=== PATIENT | male | born 1940 | race Caucasian/White ===

== ENCOUNTER 2016-11-10 09:18 | Outpatient (CLI) | payer MEDICARE, OTHER | END 2016-11-10 09:19 | disposition home or self-care (01) | DX: R35.1 Nocturia (principal) ==

== ENCOUNTER 2018-07-22 11:07 | Outpatient (CLI) | payer MEDICARE, OTHER ==
--- NOTE | 2018-07-22 15:43 | XRAY Report ---
Reason: PAIN IN RIGHT FINGER Procedure Date: 07/22/2018 Accession Number: [id number] / [id number] Procedure: XR - Finger(s) RT CPT Code: FULL RESULT: EXAM: RIGHT FIRST DIGIT RADIOGRAPHY EXAM DATE: 07/22/2018 11:43 AM. CLINICAL HISTORY: Pain in right finger. COMPARISON: None. TECHNIQUE: 3 views. FINDINGS: Bones: Normal. No fracture or bone lesion. Joints: There are degenerative changes about the interphalangeal joints as well as the first metacarpophalangeal joint. Mild subluxation of the proximal interphalangeal joint, appearance is degenerative in nature. Soft Tissues: Normal. No soft tissue swelling. IMPRESSION: No fracture or dislocation is identified. RADIA
== END 2018-07-22 11:08 | disposition home or self-care (01) ==
LOC: DI 11:07
PROVIDERS: ATTEND Internal Medicine
DX: M79.644 Pain in right finger(s) (principal)
CPT/HCPCS: 73140

== ENCOUNTER 2019-05-09 16:31 | Outpatient (CLI) | payer MEDICARE, OTHER ==
--- NOTE | 2019-05-10 10:53 | XRAY Report ---
Reason: NECK PAIN Procedure Date: 05/09/2019 Accession Number: [id number] / [id number] Procedure: XR - Cervical Spine 2 View CPT Code: FULL RESULT: EXAM: CERVICAL SPINE RADIOGRAPHY EXAM DATE: 05/09/2019 05:41 PM. CLINICAL HISTORY: Neck pain. COMPARISONS: None. TECHNIQUE: 4 views. FINDINGS: The bones are diffusely osteopenic. There is a grade 1 anterolisthesis of C4 on C5. There is a mild decrease in the intervertebral disk space at the C2-C3, moderate at C5-C6 and C6-C7. There is a mild degree of endplate spondylosis at C4-C5 through C6-C7. The prevertebral soft tissues are normal. The visualized portions of the airway are normal in appearance. There are dense areas of calcific plaquing of the bilateral carotid bulbs. The lateral masses of C1 are symmetric. The visualized portions of the odontoid are normal in appearance. IMPRESSION: 1. There is a grade 1 anterolisthesis of C4 on C5. There are mild degenerative changes of the disk at C2-C3, moderate at C5-C6 and C6-C7. 2. There is no evidence of acute cervical spine fracture. If additional imaging is desired it could be obtained with MRI of the cervical spine as deemed clinically appropriate.
== END 2019-05-09 16:32 | disposition home or self-care (01) ==
LOC: DI 16:31
PROVIDERS: ATTEND Nurse Practitioner Family
DX: M50.31 Other cervical disc degeneration, high cervical region (principal); M43.12 Spondylolisthesis, cervical region; M47.812 Spondylosis without myelopathy or radiculopathy, cervical region
CPT/HCPCS: 72040

== ENCOUNTER 2019-05-18 13:25 | Outpatient (CLI) | payer MEDICARE, OTHER ==
--- NOTE | 2019-05-19 08:09 | Ultrasound Report ---
Reason: CAROTID ATHEROSCLEROSIS, OSTEOPENIA Procedure Date: 05/18/2019 Accession Number: [id number] / [id number] Procedure: US - Carotid Doppler Complete CPT Code: Final Report FULL RESULT: EXAM: BILATERAL CAROTID AND VERTEBRAL ARTERY DUPLEX DOPPLER ULTRASOUND: EXAM DATE: 05/18/2019 02:38 PM CLINICAL HISTORY: CAROTID ATHEROSCLEROSIS, OSTEOPENIA. COMPARISON: 05/18/2019 2:36 PM. TECHNIQUE: Grayscale imaging, color Doppler, and duplex spectral Doppler were used to evaluate the carotid and vertebral arteries bilaterally. Static images were obtained. FINDINGS: Right common carotid artery intimal hyperplasia. Calcified plaque at the bulb extending into the proximal ICAs and ECAs without significant elevation of the peak systolic velocities. Left common carotid artery intimal hyperplasia. There is calcified plaque at the bulb extending into the proximal ICA and ECA without significant elevation of the peak systolic velocities. Normal antegrade flow is present in bilateral vertebral arteries. VELOCITIES (cm/sec): Transcription to insert worksheet here ICA diameter stenosis: Right: <50% by velocity and <70% by NASCET criteria. Left: <50% by velocity and <70% by NASCET criteria. IMPRESSION: 1. There is bilateral common carotid artery, proximal ICA and ECA plaque without significant stenosis. Stenosis appears to be less than 50% 2.Normal antegrade flow is present in bilateral vertebral arteries. General Recommendations: Stenosis =50% ICA - Follow-up ultrasound 6-12 months Stenosis <50% ICA - High Risk Patient with plaque - Follow-up ultrasound 1-2 years Normal Study but High Risk Patient - Follow-up ultrasound 3-5 years Management recommendations and diagnostic criteria are based on current IAC endorsed standards in Carotid Artery Stenosis: Grayscale and Doppler Ultrasound Diagnosis. Validated velocity measurements with angiographic measurements and velocity criteria are extrapolated from diameter data as defined by the Society of Radiologists in Ultrasound Consensus Conference Radiology 2003; 229;340-346. RADIA
--- NOTE | 2019-05-19 11:09 | DEXA Report ---
Reason: OSTEOPENIA Procedure Date: 05/18/2019 Accession Number: [id number] / [id number] Procedure: DEX - Dexa Spine and/or Hip CPT Code: Final Report FULL RESULT: EXAM: Dexa Spine and/or Hip DATE: 05/18/2019 2:51 PM CLINICAL HISTORY: OSTEOPENIA TECHNIQUE: Dual energy x-ray absorptiometry (DXA) was performed on a [employer] System. Regions measured are the AP Spine, femoral neck, and if needed forearm. COMPARISON: None. In accordance with the International Society for Clinical Densitometry (ISCD) guidelines, data from previous exams may be reanalyzed using current recommendations and techniques. This is done to allow a more accurate basis for comparison with the current study. FINDINGS: The data for the lumbar spine is as follows: BMD (g/cm/cm) T-SCORE Z-SCORE REGION L1 1.141 -0.2 0.0 L2 1.163 -0.6 -0.5 L3 1.371 1.1 1.3 L4 1.383 1.2 1.4 TOTAL 1.277 0.5 0.7 NOTE: All evaluable vertebrae are used for classification The data for the hip is as follows: BMD (g/cm/cm) T-SCORE Z-SCORE REGION Neck 0.932 -1.1 0.1 TOTAL 0.943 -1.1 -0.4 NOTE: The femoral neck or total proximal femur, whichever is lowest, is used for classification. IMPRESSION: THE WHO CLASSIFICATION BASED ON THE INTERNATIONAL REFERENCE STANDARD IS OSTEOPENIA. THE FRACTURE RISK IS INCREASED. RECOMMENDATION: Patients with diagnosis of osteoporosis or osteopenia should have regular bone mineral density assessment. For those eligible for Medicare, routine testing is allowed once every 2 years. Testing frequency can be increased for patients who have rapidly progressing disease or for those who are receiving medical therapy to restore bone mass. COMMENT: World Health Organization (WHO) definitions for osteoporosis and osteopenia: NORMAL BMD: T-score at -1.0 or higher, fracture risk is low OSTEOPENIA BMD: T-score between -1.0 and -2.5, fracture risk is increased. OSTEOPOROSIS BMD: T-score at -2.5 or lower, fracture risk is high. National Osteoporosis Foundation recommends: 1. Obtain adequate dietary calcium (at least 1200 mg per day) and vitamin D (400-800 international units per day). 2. Participate, as appropriate, in regular weightbearing and muscle-strengthening exercise. 3. Avoid tobacco use and reduce alcohol and caffeine intake. 4. For more detailed information see the website at www.NOF.org.
== END 2019-05-18 13:26 | disposition home or self-care (01) ==
LOC: DI 13:25
PROVIDERS: ATTEND Nurse Practitioner Family
DX: M85.89 Other specified disorders of bone density and structure, multiple sites (principal); I65.29 Occlusion and stenosis of unspecified carotid artery
CPT/HCPCS: 77080; 93880

== ENCOUNTER 2019-05-25 11:39 | Observation (INO) | payer MEDICARE, OTHER ==
--- NOTE | 2019-05-25 12:35 | ED Physician Documentation ---
PD HPI FOCAL NEURO - Stated complaint Stated Complaint: SLURRED SPEECH - Chief complaint Chief Complaint: Neuro - History obtained from History obtained from: Patient, Family - History of Present Illness Timing - onset: Yesterday Timing - duration: Hours (18) Severity of deficit: Moderate Weakness: Other (none) Numbness: Other (none) Associated symptoms: Other (states he felt clumsy while playing golf and that his vision wasn't right yesterday, then today had a hard time keeping his bicycle straight while riding uphill and when he got to his coffee shop his friends told him his speech was slurred. He feels this is improving.). No: Headache, Nausea / vomiting, Seizure, Syncope, Fall, Head injury, Chest pain, Neck pain, Back pain, Fever Contributing factors: negative: Anticoagulated, Vascular dz, Atrial fibrillation, Prosthetic heart valve Baseline status: positive: A&OX3, ambulatory, indep Similar symptoms before: Has not had sx before Recently seen: Not recently seen - Treatment prior to arrival Treatment prior to arrival: none, pt was seen at urgent care and sent to the ED Review of Systems Ten Systems: 10 systems reviewed and negative Constitutional: reports: Reviewed and negative Eyes: reports: Decreased vision (now improved). denies: Loss of vision, Photophobia Ears: reports: Reviewed and negative. denies: Loss of hearing Cardiac: reports: Reviewed and negative Respiratory: reports: Reviewed and negative GI: reports: Reviewed and negative Skin: reports: Reviewed and negative Musculoskeletal: reports: Reviewed and negative Neurologic: reports: Difficulty speaking (now improving). denies: Generalized weakness, Focal weakness, Numbness, Near syncope, Syncope, Seizure, Confused, Altered mental status, Headache, Head injury, LOC Immunocompromised: reports: Reviewed and negative PD PAST MEDICAL HISTORY - Past Medical History Past Medical History: Yes Cardiovascular: Hypertension, High cholesterol GI: GERD, Colon polyps : Benign prostate hypertrophy Musculoskeletal: Osteoarthritis - Past Surgical History General: Colonoscopy Ortho: Knee replacement HEENT: Tonsil/Adenoidectomy - Present Medications Home Medications: Ambulatory Orders Medication Instructions Recorded Confirmed Metoprolol Tartrate 25 mg PO DAILY 07/09/14 10/29/15 Doxazosin [Cardura] 10/29/15 - Allergies Allergies/Adverse Reactions: Allergies Allergy/AdvReac Type Severity Reaction Status Date / Time No Known Drug Allergies Allergy Verified 10/29/15 15:09 - Social History Does the pt smoke?: No Smoking Status: Never smoker Does the pt drink ETOH?: Yes Does the pt have substance abuse?: No - Immunizations Immunizations are current?: No Immunizations: TDAP >10years/unknown PD ED PE NORMAL - Vitals Vital signs reviewed: Yes - General General: Alert and oriented X 3, No acute distress, Well developed/nourished - HEENT HEENT: Atraumatic, Pharynx benign - Neck Neck: Supple, no meningeal sign, No JVD - Cardiac Cardiac: RRR - Respiratory Respiratory: No respiratory distress - Abdomen Abdomen: Soft, Non tender, Non distended - Male Male : Deferred - Rectal Rectal: Deferred - Derm Derm: Normal color, Warm and dry, No rash - Extremities Extremities: No deformity, No edema - Neuro Neuro: Alert and oriented X 3, product safety consultant 2-12 intact, No motor deficit, No sensory deficit, Normal speech Eye Opening: Spontaneous Motor: Obeys Commands Verbal: Oriented GCS Score: 15 - Psych Psych: Normal mood, Normal affect PD ED PE EXPANDED - Neuro Neuro: Cerebellar nl, Normal gait, Normal finger nose, Normal speech, Other (difficulty with in tandem gait ). No: Aphasia, Dysarthria NIHSS - Level of Consciousness Level of consciousness: (0) Alert, Keenly responsive LOC Questions: (0) Answers both Q's correct LOC Commands: (0) Performs both correctly - Gaze Best Gaze: (0) Normal - Visual Visual: (0) No loss - Facial Palsy Facial Palsy: (0) Normal, symmetrical movement - Motor Arms (both separate) Motor Arm (right): (0) No drift Motor Arm (left): (0) No drift - Motor Legs (both separate) Motor Leg (right): (0) No drift Motor Leg (left): (0) No drift - Limb Ataxia Limb Ataxia: (0) Absent - Sensory Sensory: (0) Normal - Best Language Best Language: (0) No aphasia - Dysarthria Dysarthria: (0) Normal - Extinction and Inattention (formally neg Extinction and inattention: (0) No abnormality - Total Score/Results Total Score/Result: 0 Results - Vitals Vitals: Vital Signs - 24 hr 05/25/19 11:42 Temperature 36.5 C Heart Rate 66 Respiratory 18 Rate Blood Pressure 162/97 H O2 Saturation 99 Oxygen O2 Source Room air - EKG (time done) 12:25 Rate: Rate (enter#) (60) Rhythm: NSR [place]: Normal Intervals: RBBB QRS: LVH Ischemia: Normal ST segments Computer interpretation: Agree with computer - Labs Labs: Laboratory Tests 05/25/19 05/25/19 05/25/19 13:25 13:25 13:25 WBC 6.4 RBC 3.83 L Hgb 12.9 L Hct 37.6 L MCV 98.2 H MCH 33.7 H MCHC 34.3 RDW 12.3 Plt Count 133 MPV 8.8 Neut # (Auto) 4.8 Lymph # (Auto) 1.0 L Stone # (Auto) 0.4 Eos # (Auto) 0.1 Baso # (Auto) 0.0 Absolute Nucleated RBC 0.00 Nucleated RBC % 0.0 PT 12.8 H INR 1.1 APTT 33.6 H Sodium 139 Potassium 4.3 Chloride 102 Carbon Dioxide 29 Anion Gap 8.0 BUN 25 H Creatinine 1.0 Estimated GFR (MDRD) 73 L Glucose 102 H Calcium 9.3 - Rads (name of study) CT Head Radiology: Final report received, See rad report (no acute findings ) PD MEDICAL DECISION MAKING - ED course Complexity details: reviewed results, re-evaluated patient, considered differential, d/w patient, d/w family ED course: ddx- TIA, peripheral neuropathy, electrolyte imbalance, CVA 78 y/o M with hx and exam as documented, symptoms concerning for TIA, no objective stroke findings and outside window for TPA given this started the previous day. CT head neg, ekg and labs normal. I do feel this may have been a TIA however and warrants admission for MRI and monitoring for recurrent symptoms. Discussed with hospitalist who agrees with plan to admit and pt agrees to admission. Departure - Departure Disposition: ED Place in Observation Clinical Impression: TIA (transient ischemic attack) Discharge Date/Time: 05/25/19 16:08
--- NOTE | 2019-05-25 13:32 | CT Report ---
Reason: gait disturbance, slurred speech Procedure Date: 05/25/2019 Accession Number: [id number] / [id number] Procedure: CT - HEAD WO CPT Code: Final Report FULL RESULT: EXAM: CT HEAD EXAM DATE: 05/25/2019 12:45 PM. CLINICAL HISTORY: Gait disturbance, slurred speech. COMPARISON: None. TECHNIQUE: Multiaxial CT images were obtained from the foramen magnum to the vertex. Reformats: Sagittal and coronal. IV contrast: None. In accordance with CT protocol optimization, one or more of the following dose reduction techniques were utilized for this exam: automated exposure control, adjustment of mA and/or KV based on patient size, or use of iterative reconstructive technique. FINDINGS: Parenchyma: No intraparenchymal hemorrhage. No evidence of mass, midline shift, or CT findings of acute infarction. Uribe-white differentiation is distinct. Diffuse chronic microangiopathic white matter changes. Extraaxial Spaces: Normal for age. No subdural or epidural collections. Ventricles: The ventricles and cortical sulci are enlarged, consistent with age-related tissue loss. Sinuses and orbits: Minimal mucosal thickening in paranasal sinuses. No air-fluid level. Hypoplastic frontal sinuses. Bones: Unremarkable. Other: None. IMPRESSION: Generalized age-related cortical atrophic changes without evidence of acute intracranial abnormality. RADIA
[2019-05-25 13:42] LABS: BASOPHILS % (AUTO) 0.6 %; EOSINOPHILS # (AUTO) 0.1 10^3/uL (0.0-0.7); EOSINOPHILS % (AUTO) 1.7 %; HGB - HEMOGLOBIN 12.9 g/dL (14.0-18.0); LYMPHOCYTES % (AUTO) 16.2 %; MEAN CORPUSCULAR HEMOGLOBIN 33.7 pg (27.0-31.0); MEAN CORPUSCULAR HGB CONC 34.3 g/dL (32.0-36.0); MEAN CORPUSCULAR VOLUME 98.2 fL (80.0-94.0); MEAN PLATELET VOLUME 8.8 fL (7.4-11.4); MONOCYTES # (AUTO) 0.4 10^3/uL (0.0-1.0); MONOCYTES % (AUTO) 6.7 %; NEUTROPHILS # (AUTO) 4.8 10^3/uL (1.5-6.6); NEUTROPHILS % (AUTO) 74.3 %; PLT - PLATELET COUNT 133 10^3/uL (130-450); RED BLOOD COUNT 3.83 10^6/uL (4.70-6.10); RED CELL DISTRIBUTION WIDTH 12.3 % (12.0-15.0); WHITE BLOOD COUNT 6.4 x10^3/uL (4.8-10.8)
[2019-05-25 13:56] LABS: INR 1.1 (0.8-1.2); PT - PROTHROMBIN TIME 12.8 secs (9.9-12.6)
[2019-05-25 14:01] LABS: CALCIUM 9.3 mg/dL (8.5-10.3)
[2019-05-25 14:05] LABS: PARTIAL THROMBOPLASTIN TIME 33.6 secs (24.9-33.3)
[2019-05-25] MEDS ORDERED: SODIUM CHLORIDE FLUSH 0.9% 10 ML SYRINGE IVP PRN (14:59)
[2019-05-25] MEDS ORDERED: SODIUM CHLORIDE 0.9% 1,000 ML IV SCH ×2 (15:00→18:00)
--- NOTE | 2019-05-25 15:09 | HISTORY & PHYSICAL EXAMINATION ---
Chief Complaint - Chief Complaint Chief Complaint: just didnt feel right this morning, there was definately something wrong History of Present Illness - Admitted From Admitted From:: ED - History Obtained From Records Reviewed: ED records History obtained from: Patient (and compared w/ ED report) - History of Present Illness HPI Comment/Other: Patient is a 78 yo male who came to ED today with complaints of speech not feeling right, "I'm not as articulate as usual" He last felt his normal self 2 days ago , but "even felt wobbly" getting up last night to void. No isolatd weakness. Just not the same as usual. He golfed yesterday, 18 holes with cart, felt his golf game was off. Couldnt tell if his balance was off because of his golf game or his golf was off because of his feeling of not entirely fully balanced. Today he finally truly felt something was wrong when he rode his bike to get his coffee (3 miles away) at [employer] and he felt like he was listing on his bike. He felt like he had to swallow more deliberaltly too, but had no dysphagia, no coughing with drinking the whole coffee. No unilateral weakness or paresthesia, no really identifiable discoordination of fine motor task. Denies anyone commenting on a facial droop. Denies, visual deficits, diplopia, dysphagia. History of anemia in past, but his H/H has been stable for years (at current level). Patient drinks ~ 1 drink ETOH daily, never more, no tobacco, non diabetic. As far as he knows his HTn is reasonably controlled but takes metoprolol tartratee just once daily. used to be on amlodipine but stopped and switched to metoprolol because he had noticed that when he bent over to leaf size picker a golf ball he would get light headed. He had a carotid duplex 05/18 for unclear reasons (< 50%, no significant stenosis) (recent severe neck pain with an abrupt head movement; not clear if that was reason for the ultrasound. Pt presented with concern for stroke or TIA. Risk facotrs of hypertension and hyperlipidemia, / self discontinued his simvastatin after reading the insert. never smoker. No prior history of stroke no DM, no known afib On presentation ED exam notable only for tandem gait abnormality Labs notable only for mildly prerenal for age 25/1.0 VS 36.5, HR 66, 162/97 and Sa02 RA 99% EKG NSR, RBBB, no ishcemic changes CT head; no acute findings mRi + lacunar infarct; see detail below History - Past Medical History Cardiovascular: reports: Hypertension, High cholesterol (self discontinued zocor after reading the insert) GI: reports: GERD, Colon polyps : reports: Benign prostate hypertrophy (voids 2-3 x/night) Musculoskeletal: reports: Osteoarthritis MRSA Hx?: No Other Past Medical History: Anemia/thrombocytopenia seen by Dr Thomas last 2014, family hx multiple myleoma; work up negative. macrocytosis at that time, recommened reduce ETOH - Past Surgical History General: reports: Colonoscopy Ortho: reports: Knee replacement HEENT: reports: Tonsil/Adenoidectomy - Family & Social History Family History: Mother: (mother and bro multiple myeloma), Brother: Living arrangement: At home (with ,, is retired manager credit collections) Living Situation: With spouse/s.o. Social History Notes: has been on [employer] for years, retired veterina fritz,. Active, golfs, bikes - Substance History Use: Uses substance without health or social issues: Alcohol (has A drink per day, may be a glass of wine or a beer, had part of a beer yesterday) - POLST POLST Status: Full Code Meds/Allgy - Home Medications Home Medications: Ambulatory Orders Medication Instructions Recorded Confirmed Doxazosin [Cardura] 10/29/15 Aspirin 81 mg PO DAILY #60 tab.chew 05/26/19 Atorvastatin Calcium 80 mg PO DAILY #30 tablet 05/26/19 Zolpidem [Ambien] 5 mg PO QPM PRN tablet 05/26/19 amLODIPine [Norvasc] 5 mg PO DAILY #30 tablet 05/26/19 - Allergies Allergies/Adverse Reactions: Allergies Allergy/AdvReac Type Severity Reaction Status Date / Time No Known Drug Allergies Allergy Verified 10/29/15 15:09 Review of Systems - Constitutional Constitutional: denies: Fatigue, Poor appetite, Weight gain, Weight loss - Eyes Eyes: reports: Corrective lenses. denies: Spots in vision, Field loss, Vision loss, Dipolpia - Cardiovascular Cariovascular: reports: Lightheadedness (as per HPI). denies: Irregular heart rate, Palpitations, Chest pain, Edema, Syncope - Respiratory Respiratory: denies: Cough, Wheezing, Orthopnea, SOB at rest - Gastrointestinal Gastrointestinal: denies: Abdominal pain, Constipation, Diarrhea, Black stools, Bloody stools - Genitourinary Genitourinary: reports: Nocturia (2-3 x at night). denies: Dysuria, Frequency - Musculoskeletal Musculoskeletal: reports: Other (recent severe neck pain, he describes as muskuloskeletal, had outpatient carotid duplex (?)) - Neurological Neurological: denies: General weakness, Other (inarticulate speech (from patients perspective) as pr HPI) - Endocrine Endocrine: denies: Polyuria, Polydypsia, Polyphagia Exam - Vital Signs Reviewed Vital Signs: Yes Vital Signs: Vital Signs x48h Temp Pulse Resp BP Pulse Ox 05/25/19 11:42 36.5 C 66 18 162/97 H 99 - Physical Exam General Appearance: positive: No acute distress, Alert, Other (Pleasant older gentleman with somewhat bulbous nose tip, sitting in chair in ED Room 10, alert, oriented, articulate (from my perspective) but who feels he is not as articulate as usual.) Eyes Bilateral: positive: Normal inspection, PERRL, EOMI (no nystagmus), Other (glasses) Neck: positive: Other (supple). negative: Carotid bruit Respiratory: positive: Chest non-tender, No respiratory distress Cardiovascular: positive: Regular rate & rhythm, No murmur Abdomen: positive: Other (Examined sitting in ED, with patient gown Soft, nondistended, nontender, + BS) Skin: positive: Warm, Dry Neurologic/Psychiatric: positive: Oriented x3, CN's nml (2-12), Motor nml, Sensation nml, Mood/affect nml, Other (no dysarthria) Conclusion/Plan - Problem List (1) Left pontine stroke Conclusion/Plan: MRI identified new small left paramedian lower twan acute infact 4x8mm; wastewater treatment plant operator type infarct (lacunar) ASA Statin (d/w patient we will start atorvastatin) Symptoms already improving but still doesnt feel articulate in speech(subjectively) Permissive HTN today need better BP control than metoprolol (plan d/c metoprolol and start amlodipine on discharge) PT eval tomorrow echo pending already had carotid duplex (2) Imbalance Conclusion/Plan: No longer symptomatic, but related to new lacunar infarct noted above PT eval in am (3) Hypertension Conclusion/Plan: Takes metoprolol tartrate 25 mg once daily at home reports was on other agent in past but was "light headed when bent over to leaf size picker the golf ball" so changed agents BP here 162/97, 154/90 Beta abdoulaye (especially metoprolol tartrat ONCE daily) not best agent for BP control Will discuss with patient other agent. goal w/ lacunar infarct 120/70 for secondary prevention (4) BPH (benign prostatic hyperplasia) Conclusion/Plan: on tamsulosin at home He does take it at night, so not liekly the alphablocker is culprit of his subjetive feeling off, imbalanced today Code status; full - Lab Results Lab results reviewed: Yes Fish Bones: 05/25/19 13:25 05/26/19 09:32 - Diagnostic Imaging Results Diagnostic Imaging Results: positive: Final report reviewed Diagnostic Imaging Results Comments: CT head; 05/25/19 No acute intracranial abnormality MRI brain: Punctate to small acute infarct of left paramedian lower twan 4x8mm .Warp Placer type infarct other findings likely related to small vessel ischemic disease - EKG Results EKG Interpreted Independently: No EKG Findings: NSR, rate ~ 60, , Left axis, Incomplete RBBB, no ischemic changes
--- NOTE | 2019-05-25 17:00 | MRI Report ---
Reason: TIA eval, ? ischemia Procedure Date: 05/25/2019 Accession Number: [id number] / [id number] Procedure: MRI - Brain W/O CPT Code: Final Report FULL RESULT: EXAM: MRI BRAIN WITHOUT CONTRAST. EXAM DATE: 05/25/2019 04:35 PM. CLINICAL HISTORY: 78-year-old presenting with gait disturbance and slurred speech. Evaluate for intracranial pathology. COMPARISON: CT head 05/25/2019. TECHNIQUE: Multiplanar, multisequence T1-weighted and fluid-sensitive MR sequences of the brain were performed. Sequences optimized for routine evaluation. Other: None. IV Contrast: None. FINDINGS: Brain Volume: Normal for age. Parenchyma/Dura: No acute parenchymal hemorrhage, mass, or midline shift. There is a small focus of restricted diffusion involving the left paramedian twan measuring 4 x 8 mm (series 305, image 56). There is associated FLAIR signal hyperintensity but no evidence of hemorrhagic transformation. There is mild bilateral areas of T2/FLAIR signal hyperintensity seen including patchy FLAIR hyperintensity within the twan. There is susceptibility artifact seen within bilateral basal ganglia that may represent mineralization. Ventricles/Cisterns: No hydrocephalus. No abnormal extra-axial fluid collection or hemorrhage. Orbits: Symmetric and unremarkable. Sella Turcica: The pituitary gland, cavernous sinuses, suprasellar cistern and optic chiasm are unremarkable. IAC: Symmetric and unremarkable. Vasculature: Normal signal flow void is seen in the major arterial structures at the skull base. Sinuses: Small moderate right maxillary mucosal retention shows versus polyps. Minimal to mild paranasal sinus mucosal thickening. Trace right mastoid effusion. Bones: There is abnormal T1 signal hypointensity seen within the clivus with no definite abnormal T2 signal hyperintensity seen on coronal T2 sequence. The calvarium is otherwise normal. Other: None. IMPRESSION: 1. Punctate to small acute infarct of the left paramedian lower twan measuring 4 x 8 mm. No evidence of hemorrhagic transformation. This is a supervisor pit and auxiliaries type infarct. 2. No acute intracranial hemorrhage, mass, hydrocephalus, or midline shift. 3. Mild white matter changes seen that while nonspecific, may represent sequela of chronic small vessel ischemic disease. RADIA The call report notification system was initiated by Dr. Trevor Montgomery at 04:59 PM on 05/25/2019. The above call report findings were discussed with Anjelica Crabtree by Dr. Trevor Montgomery at 05:03 PM on 05/25/2019.
[2019-05-25] MEDS: SODIUM CHLORIDE FLUSH 0.9% 10 ML SYRINGE IVP SCH (17:19)
[2019-05-25] MEDS: SODIUM CHLORIDE 0.9% 1,000 ML IV SCH ×2 (17:19→18:51)
[2019-05-25] MEDS ORDERED: ASPIRIN 325 MG TABLET PO ONE (17:25)
[2019-05-25] MEDS ORDERED: SODIUM CHLORIDE 0.9% 500 ML IV ONE (17:27)
[2019-05-25] MEDS ORDERED: ZOLPIDEM 5 MG TABLET PO PRN ×2 (18:14→18:23)
[2019-05-25] MEDS: TAMSULOSIN 0.4 MG CAPSULE PO SCH (20:19)
[2019-05-25] MEDS ORDERED: ATORVASTATIN 40 MG TABLET PO SCH (21:00)
[2019-05-26] MEDS: SODIUM CHLORIDE FLUSH 0.9% 10 ML SYRINGE IVP SCH ×2 (00:01→09:12)
[2019-05-26] MEDS ORDERED: ENOXAPARIN 40 MG/0.4 ML SYRINGE SUBQ SCH (09:00)
[2019-05-26 09:53] LABS: CALCIUM 9.2 mg/dL (8.5-10.3); CREATININE 1.1 mg/dL (0.6-1.2)
--- NOTE | 2019-05-26 09:59 | Discharge Plan ---
Discharge Plan Problem Reviewed?: Yes Disposition: Home, Self Care Prescriptions: amLODIPine [Norvasc] 5 mg PO DAILY #30 tablet Aspirin 81 mg PO DAILY #60 tab.chew Atorvastatin Calcium 80 mg PO DAILY #30 tablet Diet: Low Sodium Activity Restrictions: No Restrictions Shower Restrictions: No Driving Restrictions: No Weight Bearing: Full Weight Instruction Topics: Stroke Sx Care Goals: Prevent further stroke Goal blood pressure < 120/70 per recommendations for lacunar stroke Goal LDL 70 (independent of actual cholesterol value, high intensity statin is recommended) If any side effects with lipitor 80 mg, Dr Hightower could consider reduced dose Additional Instructions or Follow Up instructions: 1) new lacunar infarct: see detail below You came to the ED with self noted symptoms of not feeling articulate in speech and feeling somewhat imbalanced and off when biking. CT scan of your brain showed no bleed or other acute finding, however on MRI you do have an acute (new) lacunar stroke in the twan. This is small (4x8mm) and this kind of stroke is recognized as being due to hype rtension/elevated blood pressure. MRI also shows mild "white matter changes/ likely represents chronic "small vessel ischemic disease" but no evidence of old stroke. Small vessel disease is also associated with elevated blood pressure Your symptoms were much improved although you do not feel as articulate as usual. Physical therapy evaluated you before discharge ; no PT needs If you feel your speech is not at baseline, Dr Hightower could refer for speech therapy. New medications for secondary stroke prevention 1) ASA 81 mg daily 2) lipitor 80 mg daily ("high intensity statin") lipid panel TC 220 LDL 149 Triglyceride 119 HDL 47) Goal LDL < 70 3) amlodipine 5 mg daily (goal blood pressure for lacunar stroke < 120/70) 4) stop metoprolol ( metoprolol not optimal blood pressure medication) MRI report; Punctate to small acute infarct of left paramedian lower twan 4x8mm. No Smoking: If you smoke, Please STOP! Call for help. Follow-up with: Fernando Hightower MD [Primary Care Provider] - 1 Week (f/u blood prssure; goal < 120/70 Goal LDL < 70 (just started statin LDL 149))
[2019-05-26 11:18] LABS: CHOL/HDL RATIO 4.7 (<5.0); CHOLESTEROL 220 mg/dL; HDL CHOLESTEROL 47 mg/dL; LDL CHOLESTEROL,CALCULATED 149 mg/dL; LDL/HDL RATIO 3.2 (<3.6); VLDL CHOLESTEROL 24 mg/dL
[2019-05-26] MEDS: TAMSULOSIN 0.4 MG CAPSULE PO SCH (11:25)
--- NOTE | 2019-05-26 11:43 | DISCHARGE SUMMARY ---
Discharge Summary Admit Date: 05/25/19 Discharge Date: 05/26/19 Code Status: Attempt Resuscitation Discharge Disposition: 01 Home, Self Care Discharge Facility Name: Home - DIAGNOSES Admission Diagnoses: acute lacunar stroke 4x8mm infarct left elvin twan Punctate to small acute infarct of left paramedian lower twan 4x8mm Discharge Diagnoses with Status of Each Condition: acute lacunar stroke Punctate to small acute infarct of left paramedian lower twan 4x8mm Symptoms nearly resolved Hyperlipidemia LDL 147, started high intensity statin Hypertension stopped metoprolol started amlodipine, goal for lacunar stroke < 120/70 - HPI History of Present Illness: Patient is a 78 yo male who came to ED today with complaints of speech not feeling right, "I'm not as articulate as usual" He last felt his normal self 2 days ago , but "even felt wobbly" getting up last night to void. No isolatd weakness. Just not the same as usual. He golfed yesterday, 18 holes with cart, felt his golf game was off. Couldnt tell if his balance was off because of his golf game or his golf was off because of his feeling of not entirely fully balanced. Today he finally truly felt something was wrong when he rode his bike to get his coffee (3 miles away) at [employer] and he felt like he was listing on his bike. He felt like he had to swallow more deliberaltly too, but had no dysphagia, no coughing with drinking the whole coffee. No unilateral weakness or paresthesia, no discoordination. Friends he golfed with did not notice facial droop. Denies, visual deficits, diplopia, dysphagia. History of anemia in past, but his H/H has been stable for years (at current level). Patient drinks ~ 1 drink ETOH daily, never more, no tobacco, non diabetic. He had a carotid duplex 05/18 for unclear reasons (< 50%, no significant stenosis) Pt presented with concern for stroke or TIA. Risk facotrs of hypertension and hyperlipidemia, / self discontinued his simvastatin after reading the insert. never smoker. No prior history of stroke no DM, no known afib On presentation ED exam notable only for tandem gait abnormality Labs notable only for mildly prerenal for age 25/1.0 VS 36.5, HR 66, 162/97 and Sa02 RA 99% EKG NSR, RBBB, no ishcemic changes CT head; no acute finding MRI brain; acute lacunar infarct Left twan 4x8mm - CONSULTS | PROCEDURES Consultations: none Procedures: none - HOSPITAL COURSE Hospital Course: 1) new lacunar infarct: Left elvin twan and likely small vessel ischemic disease Symptoms much improved overnight, still mild subjective reduced articulatness with speech Telemetry without dysrhythmia, echo unremarkable, lipids notable for LDL 147 PT evaluated patient and found no need for rehab, no assistive devices For secondary prevention; 1) ASA 81 mg daily 2) lipitor 80 mg daily lipid panel TC 220 LDL 149 Triglyceride 119 HDL 47) Goal LDL < 70 3) amlodipine 5 mg daily (goal blood pressure for lacunar stroke < 120/70) 4) stop metoprolol No indication for DAPT for lacunar stroke If you feel your speech is not at baseline, Dr Hightower could refer for speech therapy. - ALLERGIES Allergies/Adverse Reactions: Allergies Allergy/AdvReac Type Severity Reaction Status Date / Time No Known Drug Allergies Allergy Verified 10/29/15 15:09 - MEDICATIONS Home Medications: Ambulatory Orders Medication Instructions Recorded Confirmed Doxazosin [Cardura] 10/29/15 Aspirin 81 mg PO DAILY #60 tab.chew 05/26/19 Atorvastatin Calcium 80 mg PO DAILY #30 tablet 05/26/19 Zolpidem [Ambien] 5 mg PO QPM PRN tablet 05/26/19 amLODIPine [Norvasc] 5 mg PO DAILY #30 tablet 05/26/19 - PHYSICAL EXAM AT DISCHARGE General Appearance: positive: No acute distress, Alert, Other (articulate objectively, able to lable multisyylable objects with) Eyes Bilateral: positive: Normal inspection, PERRL, Other (no nystagmus) Neck: positive: Nml inspection. negative: Carotid bruit Respiratory: positive: Chest non-tender, No respiratory distress, Breath sounds nml Cardiovascular: positive: Regular rate & rhythm, No murmur Skin: positive: Warm, Dry Neurologic/Psychiatric: positive: Oriented x3, CN's nml (2-12), Motor nml, Sensation nml (EOMI, no nystagmus, UE and LE strength 5/5, rapid alternating movements intact), Other (subjectively feels less articulate in speech, not evident on exam). negative: Facial droop, Slurred/abnml speech - LABS Result Diagrams: 05/25/19 13:25 05/26/19 09:32 - DIAGNOSTIC IMAGING Diagnostic Imaging Results: Final report reviewed, Discussed with radiologist ((discussed with radiologist 05/25)) Diagnostic Imaging Results Comments: CT brain 05/25 no acute finding MRI brain 05/25 Punctate to small acute infarct of left paramedian lower twan 4x8mm - FOLLOW UP Follow Up: 40 minutes
[2019-05-26 12:43] VITALS: BP 165/88
== END 2019-05-26 13:05 | disposition home or self-care (01) ==
LOC: ED 11:39 → MS2 14:59
PROVIDERS: ADMIT Nurse Practitioner; ATTEND Nurse Practitioner
DX: I63.81 Other cerebral infarction due to occlusion or stenosis of small artery (principal); R26.89 Other abnormalities of gait and mobility; R47.89 Other speech disturbances; R29.700 NIHSS score 0; I10 Essential (primary) hypertension; E78.5 Hyperlipidemia, unspecified; I67.82 Cerebral ischemia; T46.6X6A Underdosing of antihyperlipidemic and antiarteriosclerotic drugs, initial encounter; Z91.138 Patient's unintentional underdosing of medication regimen for other reason; N40.1 Benign prostatic hyperplasia with lower urinary tract symptoms; R35.1 Nocturia; M19.90 Unspecified osteoarthritis, unspecified site; Z96.659 Presence of unspecified artificial knee joint; Z79.899 Other long term (current) drug therapy
CPT/HCPCS: 36415; 70450; 70551; 80048; 80061; 85025; 85610; 85730; 93005; 93306; 96360; 96361; 96372; 97116; 97161; 99285; A9270; G0378; J1650; 83721

== ENCOUNTER 2019-07-11 09:18 | Outpatient (CLI) | payer MEDICARE, OTHER ==
[2019-07-11] MEDS ORDERED: SIMETHICONE/SOD BICARB/CIT AC 1 EACH PACKET PO ONE (10:03)
[2019-07-11] MEDS ORDERED: BARIUM SULFATE 176 GM BOTTLE PO ONE (10:03)
[2019-07-11] MEDS ORDERED: BARIUM SULFATE 148 GM POWDER PO ONE (10:03)
[2019-07-11] MEDS ORDERED: BARIUM SULFATE 700 MG TABLET PO ONE (10:03)
--- NOTE | 2019-07-11 11:33 | XRAY Report ---
Reason: TROUBLE SWALLOWING, WORSENING Procedure Date: 07/11/2019 Accession Number: [id number] / [id number] Procedure: FL - Modified Barium Swallow W/SP CPT Code: Final Report FULL RESULT: EXAM: MODIFIED BARIUM SWALLOW EXAM DATE: 07/11/2019 10:38 AM. CLINICAL HISTORY: Trouble swallowing, worsening. COMPARISON: ESOPHOGRAM 07/11/2019 10:08 AM. TECHNIQUE: Under the direction of speech pathology, patient swallowed various consistencies of barium under lateral fluoroscopic observation of the neck. Fluoroscopy Time: 1 minute 45 seconds. Number of Images: 30. FINDINGS: Swallowing Mechanism: Normal oral phase and swallowing reflex. Airway Protection: Normal epiglottic motion. No episodes of tracheal penetration or aspiration with all consistencies of barium. Pharynx: Normal. No significant vallecular or piriform sinus contrast pooling. Other: None. IMPRESSION: Normal modified barium swallow. No aspiration identified. RAD[facility]
--- NOTE | 2019-07-11 11:58 | XRAY Report ---
Reason: WORSENING, TROUBLE SWALLOWING Procedure Date: 07/11/2019 Accession Number: [id number] / [id number] Procedure: FL - Esophogram CPT Code: Final Report FULL RESULT: EXAM: BARIUM ESOPHAGRAM EXAM DATE: 07/11/2019 10:08 AM. CLINICAL HISTORY: Worsening, trouble swallowing. COMPARISONS: None. TECHNIQUE: Routine double contrast esophagram. Fluoroscopy Time: 1 minute 45 seconds. Number of Images: 28. FINDINGS: Swallowing Mechanism: Normal. No tracheal aspiration or penetration. Esophageal Motility: Normal peristaltic stripping wave. Mucosa: Normal. No ulcerations or masses. Gastroesophageal Junction: Mild reflux. No hernia or stricture. Other: None. IMPRESSION: Mild reflux. RADIA
== END 2019-07-11 09:19 | disposition home or self-care (01) ==
LOC: DI 09:18
PROVIDERS: ATTEND Nurse Practitioner Family
DX: K21.9 Gastro-esophageal reflux disease without esophagitis (principal); R13.10 Dysphagia, unspecified
CPT/HCPCS: 74220; 92611; A9270; 74230

== ENCOUNTER 2019-09-05 12:14 | Outpatient (CLI) | payer MEDICARE, OTHER ==
[2019-09-05] MEDS ORDERED: GADOBUTROL 10 MMOL/10 ML VIAL ONE (12:33)
[2019-09-05] MEDS ORDERED: GADOBUTROL 10 MMOL/10 ML VIAL IVP ONE (13:46)
--- NOTE | 2019-09-05 18:55 | MRI Report ---
Reason: LT PONTINE STROKE Procedure Date: 09/05/2019 Accession Number: [id number] / [id number] Procedure: MRI - Angio Brain W/O (MRA) CPT Code: Final Report FULL RESULT: EXAM MRA BRAIN EXAM DATE: 09/05/2019 01:56 PM. CLINICAL HISTORY: 79-year-old male. LT PONTINE STROKE. COMPARISON: None. TECHNIQUE: Multiplanar, multisequence MRA sequences of the brain were performed. Other: None. Post-processing: Multiplanar 3D MIP reconstructions. IV Contrast: None. FINDINGS: RIGHT Internal Carotid (ICA): No aneurysm, stenosis or anomaly. Middle Cerebral (MCA): No aneurysm, stenosis or anomaly. Anterior Cerebral (COLTON): No aneurysm, stenosis or anomaly. Posterior Cerebral (DRAWING IN HAND): No aneurysm, stenosis or anomaly. Posterior Communicating (P-COM): No aneurysm, stenosis or anomaly. Vertebral: No aneurysm, stenosis or anomaly in the visualized upper vertebral artery. LEFT Internal Carotid (ICA): No aneurysm, stenosis or anomaly. Middle Cerebral (MCA): No aneurysm, stenosis or anomaly. Anterior Cerebral (COLTON): No aneurysm, stenosis or anomaly. Posterior Cerebral (DRAWING IN HAND): No aneurysm, stenosis or anomaly. Posterior Communicating (P-COM): Not visualized, aplastic versus markedly hypoplastic Vertebral: No aneurysm, stenosis or anomaly in the visualized upper vertebral artery. MIDLINE Anterior Communicating (A-COM): No aneurysm, stenosis or anomaly. Basilar Artery:No aneurysm, stenosis or anomaly. Other: None. IMPRESSION: 1. Unremarkable brain MRA. No stenoses or aneurysms. RADIA
--- NOTE | 2019-09-05 20:09 | MRI Report ---
Reason: LT PONTINE STROKE Procedure Date: 09/05/2019 Accession Number: [id number] / [id number] Procedure: MRI - Angio Neck W/WO (MRA) CPT Code: Final Report FULL RESULT: EXAM: MR ANGIOGRAM NECK EXAM DATE: 09/05/2019 01:57 PM. CLINICAL HISTORY: 79-year-old male. LT PONTINE STROKE. COMPARISON: MRA head obtained concurrently TECHNIQUE: Multiplanar, multisequence MRA sequences of the neck were performed. Other: None. Post-processing: Multiplanar 3D MIP reconstructions. IV Contrast: 9 mL GADAVIST . Evaluation of arterial stenosis is based on a NASCET method of measurement. FINDINGS: RIGHT Common Carotid: Patent. No dissection or significant stenosis. Internal Carotid: Patent. No dissection or significant stenosis. External Carotid: Patent. No dissection or significant stenosis. Vertebral: Patent. No dissection or significant stenosis. LEFT Common Carotid: Patent. No dissection or significant stenosis. Internal Carotid: Patent. No dissection or significant stenosis. External Carotid: Patent. No dissection or significant stenosis. Vertebral: Patent. No dissection or significant stenosis. Intracranial Circulation: No stenoses or aneurysms in the visualized portion of the intracranial vasculature. Other: The soft tissues, bones, and lung apices are unremarkable. IMPRESSION: Unremarkable neck MRA. No hemodynamically significant stenoses. RADIA
== END 2019-09-05 12:15 | disposition home or self-care (01) ==
LOC: DI 12:14
PROVIDERS: ATTEND Psychiatry & Neurology Neurology
DX: I63.50 Cerebral infarction due to unspecified occlusion or stenosis of unspecified cerebral artery (principal)
CPT/HCPCS: 70544; 70549; A9585

== ENCOUNTER 2020-03-13 14:57 | Outpatient (CLI) | payer MEDICARE, OTHER ==
--- NOTE | 2020-03-13 15:15 | XRAY Report ---
PROCEDURE: Chest 2 View X-Ray INDICATIONS: Abnormal weight loss TECHNIQUE: 2 view(s) of the chest. COMPARISON: None. FINDINGS: Surgical changes and devices: None. Lungs and pleura: No pleural effusions or pneumothorax. Lungs are clear. Mediastinum: Mediastinal contours are normal. Heart size is normal. Bones and chest wall: No suspicious bony abnormalities. Soft tissues appear unremarkable. IMPRESSION: No acute cardiopulmonary process demonstrated radiographically. Reviewed by: Mariusz Metz MD on 03/13/2020 3:14 PM PDT Approved by: Mariusz Metz MD on 03/13/2020 3:14 PM PDT Station ID: [id number]
== END 2020-03-13 14:58 | disposition home or self-care (01) ==
LOC: DI 14:57
PROVIDERS: ATTEND Internal Medicine
DX: R63.4 Abnormal weight loss (principal)
CPT/HCPCS: 71046

== ENCOUNTER 2023-11-11 04:16 | Emergency (ER) | payer MEDICARE, OTHER ==
[2023-11-11] MEDS: SODIUM CHLORIDE 0.9% 1,000 ML IV STA (04:40)
[2023-11-11 04:44] LABS: BASOPHILS % (AUTO) 0.3 %; EOSINOPHILS # (AUTO) 0.1 10^3/uL (0.0-0.7); EOSINOPHILS % (AUTO) 0.6 %; HCT - HEMATOCRIT 36.9 % (42.0-52.0); HGB - HEMOGLOBIN 12.6 g/dL (14.0-18.0); LYMPHOCYTES % (AUTO) 8.2 %; MEAN CORPUSCULAR HEMOGLOBIN 32.8 pg (27.0-31.0); MEAN CORPUSCULAR HGB CONC 34.1 g/dL (32.0-36.0); MEAN CORPUSCULAR VOLUME 96.1 fL (80.0-94.0); MEAN PLATELET VOLUME 8.4 fL (7.4-11.4); MONOCYTES # (AUTO) 0.5 10^3/uL (0.0-1.0); MONOCYTES % (AUTO) 4.2 %; NEUTROPHILS % (AUTO) 86.4 %; PLT - PLATELET COUNT 130 10^3/uL (130-450); RED BLOOD COUNT 3.84 10^6/uL (4.70-6.10); RED CELL DISTRIBUTION WIDTH 12.9 % (12.0-15.0); WHITE BLOOD COUNT 12.7 x10^3/uL (4.8-10.8)
[2023-11-11 05:03] LABS: ALBUMIN 4.5 g/dL (3.2-5.5); ALBUMIN/GLOBULIN RATIO 1.6 (1.0-2.2); BILIRUBIN,TOTAL 0.5 mg/dL (0.2-1.0); CALCIUM 10.2 mg/dL (8.5-10.3); CREATININE 1.5 mg/dL (0.6-1.3); POTASSIUM 4.2 mmol/L (3.5-4.5); TOTAL PROTEIN 7.4 g/dL (6.4-8.9)
[2023-11-11] MEDS: HYDROmorphone 1 MG/ML CARPUJECT IVP STA (05:14)
[2023-11-11] MEDS: ONDANSETRON 4 MG/2 ML VIAL IVP STA (05:14)
--- NOTE | 2023-11-11 06:14 | ED Physician Documentation ---
PD HPI NVD - Stated complaint Stated Complaint: VOMITING/ABD PX - Chief complaint Chief Complaint: Abd Pain - History obtained from History obtained from: Patient, Family - Additonal information Additional information: The patient comes to the emergency department chief complaint of nausea and vomiting that woke him up from sleep around 1:00 this morning. He states that he had eaten a large piece of fish for dinner and that he felt fine when he went to bed. Nobody has been sick at home anytime recently and he has not been around anybody else sick. His states that she felt a little nauseated in the night but did not vomit. The patient states he was feeling quite nasal nauseated when he woke up and vomited a number of times until he felt that he had finally emptied his stomach. He states he kept feeling as though he had to have a bowel movement and was possibly going to have diarrhea but only little bits of stool would come out. He states he has a strong cramping feeling in his low abdomen. The patient has not had any abdominal surgeries and has all his organs. He states he was feeling completely fine prior to waking up the symptoms. No other complaints at this time. The patient states he is otherwise quite healthy. He states the only other thing that is new is that he was started on gabapentin and took his first dose today. PD PAST MEDICAL HISTORY - Past Medical History Past Medical History: Yes Cardiovascular: Hypertension, High cholesterol GI: GERD, Colon polyps : Benign prostate hypertrophy Musculoskeletal: Osteoarthritis - Past Surgical History Past Surgical History: Yes General: Colonoscopy Ortho: Knee replacement HEENT: Tonsil/Adenoidectomy - Present Medications Home Medications: Ambulatory Orders Medication Instructions Recorded Confirmed amLODIPine [Norvasc] 5 mg PO DAILY #30 tablet 05/26/19 11/11/23 Pramipexole Di-HCl [Mirapex] 1 tab PO DAILY 09/30/20 11/11/23 Losartan Potassium 25 mg PO DAILY 11/11/23 11/11/23 Omeprazole 20 mg PO DAILY 11/11/23 11/11/23 Ondansetron Odt [Zofran] 4 mg TL Q6H PRN #10 tablet 11/11/23 Rosuvastatin Calcium [Crestor] 40 mg PO DAILY 11/11/23 11/11/23 Tamsulosin [Flomax] 0.4 mg PO DAILY 11/11/23 11/11/23 - Allergies Allergies/Adverse Reactions: Allergies Allergy/AdvReac Type Severity Reaction Status Date / Time No Known Drug Allergies Allergy Verified 11/11/23 04:47 - Social History Does the pt smoke?: No Smoking Status: Never smoker Does the pt drink ETOH?: Yes Does the pt have substance abuse?: No - Immunizations Immunizations are current?: No Immunizations: TDAP >10years/unknown - POLST POLST Status: Full Code PD ED PE NORMAL - Vitals Vital signs reviewed: Yes - General General: Alert and oriented X 3, No acute distress, Well developed/nourished - HEENT HEENT: Atraumatic, PERRL, EOMI, Moist mucous membranes - Neck Neck: Supple, no meningeal sign - Cardiac Cardiac: RRR, No murmur - Respiratory Respiratory: No respiratory distress, Clear bilaterally - Abdomen Abdomen: Soft, Non distended, Other (Mild diffuse tenderness, nonfocal abdominal exam.) - Derm Derm: Warm and dry - Extremities Extremities: No deformity - Neuro Neuro: Alert and oriented X 3 - Psych Psych: Normal mood, Normal affect Results - Vitals Vitals: Vital Signs - 24 hr 11/11/23 11/11/23 04:35 06:37 Temperature 36.5 C Heart Rate 80 84 Respiratory 18 15 Rate Blood Pressure 166/95 H 143/82 H O2 Saturation 100 93 Oxygen O2 Source Room air - Labs Labs: Laboratory Tests 11/11/23 11/11/23 04:39 04:39 WBC 12.7 H RBC 3.84 L Hgb 12.6 L Hct 36.9 L MCV 96.1 H MCH 32.8 H MCHC 34.1 RDW 12.9 Plt Count 130 MPV 8.4 Neut # (Auto) 11.0 H Lymph # (Auto) 1.0 L Ross # (Auto) 0.5 Eos # (Auto) 0.1 Baso # (Auto) 0.0 Absolute Nucleated RBC 0.00 Nucleated RBC % 0.0 Sodium 137 Potassium 4.2 Chloride 102 Carbon Dioxide 24 Anion Gap 11.0 BUN 36 H Creatinine 1.5 H Estimated GFR (MDRD) 45 L Glucose 156 H Calcium 10.2 Total Bilirubin 0.5 AST 16 ALT 9 L Alkaline Phosphatase 75 Total Protein 7.4 Albumin 4.5 Globulin 2.9 Albumin/Globulin Ratio 1.6 Lipase 12 PD Medical Decision Making - ED course Complexity details: reviewed results, re-evaluated patient, considered differential, d/w patient, d/w family ED course: The patient's labs are unremarkable and on reevaluation he was found to be feeling much better after symptomatic management. His abdominal exam was nonfocal and I did not find evidence of an emergent condition at this time. His has had similar symptoms but much milder after eating the same food and I suspect that her symptoms are either related to the food that he ate or to a virus that they both have on varying levels. Either way, I have discussed with the patient and his that the symptoms are expected to be self-limited and management for now will be directed at symptomatic relief at home. We discussed the need to return, should the patient's abdominal pain get worse, should he be unable to hold anything down despite the Zofran I prescribed, or should he develop fevers or other concerns. Otherwise, the patient may follow-up with his primary doctor. Departure - Departure Disposition: Home, Self Care Clinical Impression: Vomiting Qualifiers: Vomiting type: bilious vomiting Nausea presence: with nausea Qualified Code(s): R11.14 - Bilious vomiting Abdominal pain Qualifiers: Abdominal location: lower abdomen, unspecified Qualified Code(s): R10.30 - Lower abdominal pain, unspecified Condition: Stable Instructions: ED Nausea Vomiting Prescriptions: Ondansetron Odt [Zofran] 4 mg TL Q6H PRN #10 tablet PRN Reason: Nausea / Vomiting Comments: Your labs overall look fairly good. There is nothing to indicate an emergent cause of your symptoms, either on laboratory studies or on your physical exam. Given the onset of symptoms, you most likely either have a viral illness or are reacting to something in the food you ate. It is possible that this is a toxin mediated "food poisoning" but this usually has more rapid onset following eating the bad food than what you have had tonight. What ever the case, any of the above causes will ultimately resolve on their own and there is not much to specifically do except treat the symptoms so that you can stay hydrated until you are feeling better. We have given you with IV fluids tonight as well as pain and nausea medicine. A prescription for nausea medicine has been electronically transmitted to the [facility] in [place]. As far as taking anything by mouth, you should stick with clear liquids until you have been able to be free from vomiting for at least 12 hours. It is best not to take antidiarrhea medicines if you are not having diarrhea. Please follow-up with your primary care physician if you are not feeling better after the weekend. Forms: PCP List Discharge Date/Time: 11/11/23 06:40
[2023-11-11 06:39] VITALS: BP 143/82; O2SAT 93
== END 2023-11-11 06:40 | disposition home or self-care (01) ==
LOC: ED 04:16
DX: R11.14 Bilious vomiting (principal); R10.30 Lower abdominal pain, unspecified; I10 Essential (primary) hypertension; E78.00 Pure hypercholesterolemia, unspecified; N40.0 Benign prostatic hyperplasia without lower urinary tract symptoms; Z86.010 Personal history of colon polyps; Z79.899 Other long term (current) drug therapy
CPT/HCPCS: 36415; 80053; 83690; 85025; 96374; 96375; 99283; J1170

== ENCOUNTER 2023-11-12 17:31 | Emergency (ER) | payer MEDICARE, OTHER ==
[2023-11-12 18:13] LABS: BASOPHILS % (AUTO) 0.3 %; EOSINOPHILS # (AUTO) 0.1 10^3/uL (0.0-0.7); EOSINOPHILS % (AUTO) 0.6 %; HCT - HEMATOCRIT 37.3 % (42.0-52.0); HGB - HEMOGLOBIN 12.3 g/dL (14.0-18.0); LYMPHOCYTES # (AUTO) 0.9 10^3/uL (1.5-3.5); LYMPHOCYTES % (AUTO) 8.2 %; MEAN CORPUSCULAR HEMOGLOBIN 32.2 pg (27.0-31.0); MEAN CORPUSCULAR VOLUME 97.6 fL (80.0-94.0); MEAN PLATELET VOLUME 8.2 fL (7.4-11.4); MONOCYTES # (AUTO) 0.6 10^3/uL (0.0-1.0); MONOCYTES % (AUTO) 6.1 %; NEUTROPHILS # (AUTO) 8.8 10^3/uL (1.5-6.6); NEUTROPHILS % (AUTO) 84.3 %; PLT - PLATELET COUNT 123 10^3/uL (130-450); RED BLOOD COUNT 3.82 10^6/uL (4.70-6.10); RED CELL DISTRIBUTION WIDTH 12.7 % (12.0-15.0); WHITE BLOOD COUNT 10.5 x10^3/uL (4.8-10.8)
[2023-11-12 18:26] LABS: ALBUMIN 4.4 g/dL (3.2-5.5); ALBUMIN/GLOBULIN RATIO 1.5 (1.0-2.2); ALKALINE PHOSPHATASE 74 IU/L (42-121); ALT ALANINE AMINOTRANSFERASE 9 IU/L (10-60); AST ASPARTATE AMINOTRANSFERASE 18 IU/L (10-42); BILIRUBIN,TOTAL 0.6 mg/dL (0.2-1.0); BUN - BLOOD UREA NITROGEN 35 mg/dL (6-20); CALCIUM 10.2 mg/dL (8.5-10.3); CARBON DIOXIDE - CO2 25 mmol/L (21-32); CHLORIDE 103 mmol/L (101-111); CREATININE 1.9 mg/dL (0.6-1.3); GFR - MDRD 34 (>89); GLUCOSE 111 mg/dL (74-104); POTASSIUM 4.2 mmol/L (3.5-4.5); SODIUM 137 mmol/L (135-145); TOTAL PROTEIN 7.3 g/dL (6.4-8.9)
[2023-11-12 18:30] LABS: LIPASE < 10 U/L (11-82)
[2023-11-12] MEDS ORDERED: SODIUM CHLORIDE 0.9% 1,000 ML IV STA (18:31)
[2023-11-12] MEDS: SODIUM CHLORIDE 0.9% 1,000 ML IV STA (19:22)
--- NOTE | 2023-11-12 19:39 | ED Physician Documentation ---
PD HPI ABD PAIN - Stated complaint Stated Complaint: ABD PX - Chief complaint Chief Complaint: Abd Pain - History obtained from History obtained from: Patient, Family - History of Present Illness Timing - onset: How many days ago (2) Timing - duration: Days (2) Timing - details: Intermittant Pain level max: 9 Pain level now: 3 Quality: Sharp, Pain Location: LLQ Radiation: No: Chest, , Lower back, Left flank, Left shoulder, Right flank, Right shoulder, Upper back Improved by: Other (nothing) Worsened by: Other (nothing) Associated symptoms: Nausea, Vomiting (when the pain is severe). No: Fever, Hematemesis, Diarrhea, Constipation, Melena, Hematochezia, Dysuria, Hematuria Review of Systems Constitutional: denies: Fever, Chills Respiratory: denies: Cough GI: denies: Diarrhea, Hematemesis, Bloody / black stool : denies: Dysuria, Frequency, Hesitancy Skin: denies: Rash PD PAST MEDICAL HISTORY - Past Medical History Past Medical History: Yes Cardiovascular: Hypertension, High cholesterol GI: GERD, Colon polyps : Benign prostate hypertrophy Musculoskeletal: Osteoarthritis - Past Surgical History Past Surgical History: Yes General: Colonoscopy Ortho: Knee replacement HEENT: Tonsil/Adenoidectomy - Present Medications Home Medications: Ambulatory Orders Medication Instructions Recorded Confirmed amLODIPine [Norvasc] 5 mg PO DAILY #30 tablet 05/26/19 11/12/23 Pramipexole Di-HCl [Mirapex] 1 tab PO DAILY 09/30/20 11/12/23 Losartan Potassium 25 mg PO DAILY 11/11/23 11/12/23 Omeprazole 20 mg PO DAILY 11/11/23 11/12/23 Rosuvastatin Calcium [Crestor] 40 mg PO DAILY 11/11/23 11/12/23 Tamsulosin [Flomax] 0.4 mg PO DAILY 11/11/23 11/12/23 Ibuprofen [Motrin] 800 mg PO Q8H PRN #30 tablet 11/12/23 Ondansetron Odt [Zofran] 4 mg TL Q6H PRN #10 tablet 11/12/23 Oxycodone HCl/Acetaminophen 1 - 2 each PO Q6H PRN #14 tablet 11/12/23 [Percocet 5-325 mg Tablet] MDD 6 tabs - Allergies Allergies/Adverse Reactions: Allergies Allergy/AdvReac Type Severity Reaction Status Date / Time No Known Drug Allergies Allergy Verified 11/11/23 04:47 - Social History Does the pt smoke?: No Smoking Status: Never smoker Does the pt drink ETOH?: Yes Does the pt have substance abuse?: No - Immunizations Immunizations are current?: No Immunizations: TDAP >10years/unknown - POLST POLST Status: Full Code PD ED PE NORMAL - Vitals Vital signs reviewed: Yes - General General: Alert and oriented X 3, No acute distress - HEENT HEENT: Moist mucous membranes - Neck Neck: Supple, no meningeal sign - Cardiac Cardiac: RRR, Strong equal pulses - Respiratory Respiratory: No respiratory distress, Clear bilaterally - Abdomen Abdomen: Soft, Non tender, Non distended - Back Back: No CVA TTP - Derm Derm: Warm and dry - Neuro Neuro: Alert and oriented X 3 - Psych Psych: Normal mood, Normal affect Results - Vitals Vitals: Vital Signs - 24 hr 11/12/23 11/12/23 11/12/23 17:33 20:00 20:30 Temperature 36.7 C Heart Rate 82 81 78 Respiratory 16 16 16 Rate Blood Pressure 153/76 H 190/104 H 162/97 H O2 Saturation 95 96 95 11/12/23 20:40 Temperature Heart Rate Respiratory Rate Blood Pressure O2 Saturation 96 Oxygen O2 Source Room air - Labs Labs: Laboratory Tests 11/12/23 11/12/23 11/12/23 18:07 18:07 19:20 WBC 10.5 RBC 3.82 L Hgb 12.3 L Hct 37.3 L MCV 97.6 H MCH 32.2 H MCHC 33.0 RDW 12.7 Plt Count 123 L MPV 8.2 Neut # (Auto) 8.8 H Lymph # (Auto) 0.9 L Leon # (Auto) 0.6 Eos # (Auto) 0.1 Baso # (Auto) 0.0 Absolute Nucleated RBC 0.00 Nucleated RBC % 0.0 Sodium 137 Potassium 4.2 Chloride 103 Carbon Dioxide 25 Anion Gap 9.0 BUN 35 H Creatinine 1.9 H Estimated GFR (MDRD) 34 L Glucose 111 H Calcium 10.2 Total Bilirubin 0.6 AST 18 ALT 9 L Alkaline Phosphatase 74 Total Protein 7.3 Albumin 4.4 Globulin 2.9 Albumin/Globulin Ratio 1.5 Lipase < 10 L Urine Color YELLOW Urine Clarity CLEAR Urine pH 5.5 Ur Specific [place] >=1.030 H Urine Protein NEGATIVE Urine Glucose (UA) NEGATIVE Urine Ketones 15 H Urine Occult Blood NEGATIVE Urine Nitrite NEGATIVE Urine Bilirubin NEGATIVE Urine Urobilinogen 0.2 (NORMAL) Ur Leukocyte Esterase NEGATIVE Ur Microscopic Review NOT INDICATED Urine Culture Comments NOT INDICATED - Rads (name of study) CT abd pelvis Relevant Findings:: Final report received, See rad report PD Medical Decision Making - ED course Complexity details: reviewed results, re-evaluated patient, considered differential, d/w patient, d/w family ED course: 83-year-old male with intermittent left-sided abdominal/flank pain. Symptoms consistent with ureteral stone. No significant laboratory abnormalities. Mild anemia, mild renal insufficiency. Does appear dehydrated and was given IV fluids. Urine is concentrated as well. His CT scan shows a punctate left distal UVJ stone. Pain resolved with Toradol. Will prescribe pain medication and nausea medication for home. Recommend that he follow-up with his doctor as needed for further care. Patient will return if he develops uncontrolled pain, fevers, vomiting or other new or worrisome symptoms. Counseled to increase his water intake at home. Patient counseled regarding signs and symptoms for which I believe and urgent re-evaluation would be necessary. Patient with good understanding of and agreement to plan and is comfortable going home at this time This document was made in part using voice recognition software. While efforts are made to proofread this document, sound alike and grammatical errors may occur. Departure - Departure Disposition: 01 Home, Self Care Clinical Impression: Ureteral stone Condition: Good Instructions: ED Stone Renal W Colic Follow-Up: DANILO MILLER ARNP [Primary Care Provider] - Prescriptions: Ibuprofen [Motrin] 800 mg PO Q8H PRN #30 tablet PRN Reason: PAIN &/OR FEVER Oxycodone HCl/Acetaminophen [Percocet 5-325 mg Tablet] 1 - 2 each PO Q6H PRN #14 tablet MDD 6 tabs PRN Reason: pain Ondansetron Odt [Zofran] 4 mg TL Q6H PRN #10 tablet PRN Reason: Nausea / Vomiting Comments: Your prescriptions were sent to [facility] in [place]. Please follow-up with your doctor as needed for further care. Did you have a left-sided ureteral stone that is at the entrance to the bladder. This should pass on its own. Please return if you worsen. Drink plenty of water. I am prescribing a short course of narcotic pain medication for you. These are potentially dangerous and addictive medications that should be used carefully. These medications may constipate you. Take an looq-uwb-bailyag stool softener (docusate) twice daily with plenty of water while taking these medications. If you go 24 hours without a bowel movement, take hayl-vln-rmfpzek miralax, per package instructions. Do not drink or drive while taking these medications. If you received narcotic or sedating medications while in the emergency department, do not drive for 24 hours. Store this medication in a safe, secure place and out of reach of children. It is a violation of federal law to give or sell this medication to another person or to use in a manner other than prescribed. The ED will not refill narcotic prescriptions, including prescriptions lost or stolen. To dispose of unwanted medications: 1. [facility] at [address] in [place] has a medication drop box. They accept prescription medications (in pill form) Wednesday through Wednesday 9:00 a.m. to 5:00 p.m. 2. The [facility] [employer] accepts prescription medications (in pill form only) for disposal year round. Call for more informati on. 3. Contact the [facility] for the next [facility] sponsored prescription drug collection event. , [phone], or [phone]; Forms: PCP List Discharge Date/Time: 11/12/23 20:40
[2023-11-12 19:47] LABS: BILIRUBIN,URINE NEGATIVE (NEGATIVE); GLUCOSE, URINE (UA) NEGATIVE (NEGATIVE); KETONES,URINE (UA) 15 mg/dL (NEGATIVE); LEUKOCYTE ESTERASE, URINE NEGATIVE (NEGATIVE); NITRITE,URINE NEGATIVE (NEGATIVE); OCCULT BLOOD,URINE NEGATIVE (NEGATIVE); PH,URINE 5.5 PH (5.0-7.5); PROTEIN,URINE NEGATIVE (NEGATIVE); UROBILINOGEN,URINE 0.2 (NORMAL) E.U./dL (NORMAL)
[2023-11-12 19:51] LABS: CLARITY,URINE CLEAR (CLEAR)
[2023-11-12] MEDS: KETOROLAC 30 MG/ML VIAL IVP STA (19:58)
--- NOTE | 2023-11-12 20:28 | CT Report ---
PROCEDURE: Abdomen/Pelvis WO INDICATIONS: L flank pain TECHNIQUE: A CT scan of the abdomen and pelvis was performed without the use of intravenous contrast. Images we re recorded and evaluated at appropriate window settings. Reformats: coronal and sagittal. For radiat ion dose reduction, the following was used: automated exposure control, adjustment of mA and/or kV ac cording to patient size. COMPARISON: None. FINDINGS: Image quality: Diagnostic. Lower chest: Unremarkable. Liver: No contour-deforming mass. Gallbladder and biliary tree: Contracted but grossly unremarkable Spleen: No splenomegaly. Pancreas: No pancreatic ductal dilation. Adrenals: No adrenal nodule. Kidneys and ureters: Right kidney demonstrates mild atrophy. No stones. Ureter is unremarkable. Left kidney demonstrates llbo-kv-gwghvldc hydronephrosis as well as hydroureter. Punctate calcification is present in the distal ureter at the ureterovesicular junction. In addition, punctate calcification i s present in the superior left renal pole. No renal cystic lesion which requires follow up. No solid mass. Stomach, bowel and peritoneum: No bowel distension. No pathologic free fluid. Appendix is normal. Col onic diverticula are present. Lymph nodes: No central or retroperitoneal adenopathy. Vessels: No infrarenal aortic aneurysm. PELVIS Reproductive organs: Unremarkable. Bladder: No wall thickness, accounting for underdistention. Pelvic lymph nodes: No pelvic adenopathy by size criteria. Bones: No aggressive osseous abnormality. Other: Bilateral fat-containing inguinal hernia. IMPRESSION: Puqx-ar-mmpbqnsq left hydronephrosis secondary to punctate distal ureteral calculus at the ureteroves icular junction. Nonobstructing left renal calculus. Diverticulosis. Reviewed by: Consuelo Parra MD on 11/12/2023 8:27 PM PDT Approved by: Consuelo Parra MD on 11/12/2023 8:27 PM PDT Station ID: [id number]
[2023-11-12 20:39] VITALS: BP 162/97
[2023-11-12 20:48] VITALS: O2SAT 96
== END 2023-11-12 20:40 | disposition home or self-care (01) ==
LOC: ED 17:31
DX: N20.1 Calculus of ureter (principal); I10 Essential (primary) hypertension; E78.00 Pure hypercholesterolemia, unspecified; N40.0 Benign prostatic hyperplasia without lower urinary tract symptoms; Z86.010 Personal history of colon polyps; Z79.899 Other long term (current) drug therapy
CPT/HCPCS: 36415; 80053; 81001; 81003; 83690; 85025; 87086; 96361; 96374; 99283

== ENCOUNTER 2023-12-16 08:00 | Outpatient (CLI) | payer MEDICARE, OTHER ==
[2023-12-16 15:56] LABS: BILIRUBIN,URINE NEGATIVE (NEGATIVE); GLUCOSE, URINE (UA) NEGATIVE (NEGATIVE); KETONES,URINE (UA) NEGATIVE (NEGATIVE); LEUKOCYTE ESTERASE, URINE NEGATIVE (NEGATIVE); NITRITE,URINE NEGATIVE (NEGATIVE); OCCULT BLOOD,URINE NEGATIVE (NEGATIVE); PH,URINE 5.5 PH (5.0-7.5); PROTEIN,URINE NEGATIVE (NEGATIVE); UROBILINOGEN,URINE 0.2 (NORMAL) E.U./dL (NORMAL)
[2023-12-16 16:10] LABS: AMORPHOUS SEDIMENT,UR Few /LPF; BACTERIA,URINE None Seen /HPF (None Seen); CLARITY,URINE CLEAR (CLEAR); RBC,URINE None Seen /HPF (0-5); SQUAMOUS EPITHELIAL CELL,UR RARE Squamous (<= Few); WBC,URINE 0-3 /HPF (0-3)
== END 2023-12-16 23:59 | disposition home or self-care (01) ==
LOC: LAB 08:00
PROVIDERS: ATTEND Urology
DX: R31.9 Hematuria, unspecified (principal)
CPT/HCPCS: 81001; 87086

== ENCOUNTER 2024-01-06 16:06 | Outpatient (CLI) | payer MEDICARE, OTHER ==
--- NOTE | 2024-01-07 07:36 | XRAY Report ---
PROCEDURE: Hand 3+V RT INDICATIONS: RIGHT HAND PAIN TECHNIQUE: 3 views of the hand acquired. COMPARISON: None. FINDINGS: Bones: No acute osseous fracture or dislocation. Circumscribed lucent lesion in the proximal 2nd met acarpal resembles fibrous dysplasia or enchondroma. No pathologic fracture is seen. There is generali zed osteopenia. Multifocal osteoarthrosis, most notably at the radiocarpal joint with subchondral scl erosis and remodeling of the articular surfaces. There is remodeling of the distal radioulnar joint. Mild radial angulation at the 5th distal interphalangeal joint. Soft tissues: No suspicious soft tissue calcifications. IMPRESSION: 1.No acute osseous abnormality. If symptoms persist or there is continued clinical concern, further e valuation with MRI or CT may be helpful. 2.Background degenerative, severe at the radiocarpal joint. 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 If associated with pain, MRI could be performed for further evaluation. Reviewed by: Demario Edgar MD on 01/07/2024 7:35 AM PDT Approved by: Demario Edgar MD on 01/07/2024 7:35 AM PDT Station ID: [id number]
== END 2024-01-06 23:59 | disposition home or self-care (01) ==
LOC: DI.S 16:06
PROVIDERS: ATTEND Emergency Medicine
DX: S60.221A Contusion of right hand, initial encounter (principal); M19.041 Primary osteoarthritis, right hand

== ENCOUNTER 2024-01-31 14:59 | Outpatient (CLI) | payer MEDICARE, OTHER ==
[~2024-01-31 14:59] MED LIST: GADOTERATE MEGLUMINE 10 MMOL/20 ML VIAL ONE
[2024-01-31 15:12] LABS: CREATININE 1.1 mg/dL (0.6-1.3)
[2024-01-31] MEDS: GADOTERATE MEGLUMINE 10 MMOL/20 ML VIAL IVP ONE (17:06)
--- NOTE | 2024-01-31 17:11 | MRI Report ---
PROCEDURE: Hand RT W/WO INDICATIONS: R HAND BONE CYST CONTRAST: clariscan 17.8ml TECHNIQUE: Noncontrast coronal T1 spin echo and T2 fast spin echo with fat saturation, axial proton density fast spin echo and T2 fast spin echo with fat saturation, axial T1 spin echo with fat saturation, sagitta l T1 spin echo and STIR through the hand and fingers. Post-contrast axial, coronal, and sagittal T1 spin echo through the hand and fingers. COMPARISON: Right hand radiographs 01/06/2024 FINDINGS: Image quality: Excellent. Bones: Mildly expansile moderate degenerative lesion is seen within the 2nd metacarpal base and proxi mal shaft. No central postcontrast enhancement. No definite cortical obstruction. However, there appe ars to be mild osseous edema within the 2nd metacarpal shaft and surrounding soft tissue edema with p ossible periosteal bifurcation suspicious for a nondisplaced pathologic fracture. Multifocal [id number] rintense signal throughout the carpal bones suspicious for osseous erosions. There is associated enha ncing synovial hypertrophy throughout the wrist. Multifocal cartilage loss is seen with subchondral e delfino. Questionable small osseous erosion of the 2nd metacarpal head. Scattered arthritic changes are seen throughout the interphalangeal joints of the fingers. Radial angulation again noted at the 5th d istal interphalangeal joint. Soft tissues: There is minimal artifact along the volar aspect of the index finger, likely related t o a small metal foreign body in this location on prior radiographs. The musculature edema seen surrou nding the 2nd metacarpal shaft. The remaining visualized muscles are grossly normal in signal intensi ty and bulk. Joint effusions are seen throughout all 3 compartments of the wrist with enhancing synov ial hypertrophy. No solid enhancing mass is seen in the hand. Mild tenosynovitis of the extensor carp i ulnaris tendon. The remaining visualized flexor and extensor tendons are grossly intact. IMPRESSION: 1.Large mildly expansile cystic lesion seen at the base of the 2nd metacarpal corresponding to the shira cent lesion on prior radiographs from 01/06/2024. Findings may represent a bone cyst, enchondroma, fib alondra dysplasia, or possibly a large osseous erosion or subchondral cyst. Primary osseous malignancy o r metastatic disease are considered less likely. 2.Osseous edema within the 2nd metacarpal shaft with surrounding mild periosteal new bone formation a nd soft tissue edema are suspicious for a nondisplaced pathologic fracture at the distal margin of th e osseous lesion. 3.Suspected multiple ossified erosions throughout the wrist with joint effusions and enhancing synovi al hypertrophy. Moderate to severe arthritic changes are present. Overall, findings are suspicious fo r an inflammatory arthritis such as rheumatoid arthritis, and correlation with clinical findings and serologies is recommended. 4.Mild extensor carpi ulnaris tenosynovitis. Reviewed by: Demario Edgar MD on 01/31/2024 5:10 PM PDT Approved by: Demario Edgar MD on 01/31/2024 5:10 PM PDT Station ID: [id number]
== END 2024-01-31 15:00 | disposition home or self-care (01) ==
LOC: LAB 14:59
PROVIDERS: ATTEND Physician Assistant Surgical
DX: M85.641 Other cyst of bone, right hand (principal); R93.6 Abnormal findings on diagnostic imaging of limbs; M19.041 Primary osteoarthritis, right hand; M65.841 Other synovitis and tenosynovitis, right hand
CPT/HCPCS: 36415; 73220; 82565; A9575